=== PATIENT | male | born 1955 | race Caucasian/White ===

== ENCOUNTER 2018-04-03 09:06 | Emergency (ER) | payer OTHER ==
[2018-04-03 09:29] VITALS: BP 155/97; PULSE 78; TEMP 98.5; BMI 26.6
[2018-04-03] MEDS ORDERED: MECLIZINE HCL 25 MG TABLET (FP) PO ONE (10:42)
--- NOTE | 2018-04-03 10:48 | PDOC ---
History of Present Illness - General Chief Complaint: Lightheaded Stated Complaint: Lightheaded Time Seen by Provider: 04/03/18 09:45 History Source: Patient Exam Limitations: No Limitations - History of Present Illness Initial Comments: 04/03/18 10:53 Patient is a 62-year-old male with no past medical history who presents to the emergency department today for dizziness started this morning. Patient states he woke up and when he sat up the whole room was spinning around him. He states the sensation is worse on the left than the right. He states that this has never happened to him before. Denies lightheadedness, headache, fever, nausea, vomiting, gait changes, weakness. Past History - Travel Traveled outside of the country in the last 30 days: No Close contact w/someone who was outside of country & ill: No - Past Medical History Allergies/Adverse Reactions: Allergies Allergy/AdvReac Type Severity Reaction Status Date / Time No Known Allergies Allergy Verified 04/03/18 10:45 Home Medications: Ambulatory Orders Fluticasone Prop 0.05% Nasal [Flonase -] 1 - 2 spray NS DAILY #1 spray.pump Meclizine HCl [Antivert -] 25 mg PO TID #21 tablet 04/03/18 COPD: No HTN: Yes - Immunization History Immunization Up to Date: Yes - Suicide/Smoking/Psychosocial Hx Smoking History: Never smoked Hx Alcohol Use: No Drug/Substance Use Hx: No Substance Use Type: None Review of Systems - Review of Systems Able to Perform ROS?: Yes Comments:: 04/03/18 10:42 CONSTITUTIONAL: Absent: fever, chills, diaphoresis, generalized weakness, malaise, loss of appetite HEENT: Absent: rhinorrhea, nasal congestion, throat pain, throat swelling, difficulty swallowing, mouth swelling, ear pain, eye pain, visual Changes CARDIOVASCULAR: Absent: chest pain, loss of consciousness, palpitations, irregular heart rate, peripheral edema RESPIRATORY: Absent: cough, shortness of breath, dyspnea with exertion, orthopnea, wheezing, stridor, hemoptysis GASTROINTESTINAL: Absent: abdominal pain, abdominal distension, nausea, vomiting, diarrhea, constipation, melena, hematochezia GENITOURINARY: Absent: dysuria, frequency, urgency, hesitancy, hematuria, flank pain, genital pain MUSCULOSKELETAL: Absent: myalgia, arthralgia, joint swelling SKIN: Absent: rash, itching, pallor HEMATOLOGIC/IMMUNOLOGIC: Absent: easy bleeding, easy bruising, lymphadenopathy, frequent infections ENDOCRINE: Absent: unexplained weight gain, unexplained weight loss, heat intolerance, cold intolerance NEUROLOGIC: Present: dizziness Absent: headache, focal weakness or paresthesias, unsteady gait, seizure, mental status changes, bladder or bowel incontinence PSYCHIATRIC: Absent: anxiety, depression, suicidal or homicidal ideation, hallucinations. Is the patient limited [place]i proficient: No *Physical Exam - Vital Signs Last Vital Signs Temp Pulse Resp BP Pulse Ox 98.5 F 78 20 155/97 99 04/03/18 09:10 04/03/18 09:10 04/03/18 09:10 04/03/18 09:10 04/03/18 09:10 - Physical Exam Comments: 04/03/18 10:42 GENERAL: Well developed, well nourished. Awake and alert. No acute distress. HEENT: Normocephalic, atraumatic. PERRLA, EOMI. No conjunctival pallor. Sclera are non- icteric. Moist mucous membranes. Oropharynx is clear. NECK: Supple. Full ROM. No JVD. Carotid pulses 2+ and symmetric, without bruits. No thyromegaly. No lymphadenopathy. CARDIOVASCULAR: Regular rate and rhythm. No murmurs, rubs, or gallops. Distal pulses are 2+ and symmetric. PULMONARY: No evidence of respiratory distress. Lungs clear to auscultation bilaterally. No wheezing, rales or rhonchi. ABDOMINAL: Soft. Non-tender. Non-distended. No rebound or guarding. No organomegaly. Normoactive bowel sounds. MUSCULOSKELETAL Normal range of motion at all joints. No bony deformities or tenderness. No CVA tenderness. EXTREMITIES: No cyanosis. No clubbing. No edema. No calf tenderness. SKIN: Warm and dry. Normal capillary refill. No rashes. No jaundice. NEUROLOGICAL: Alert, awake, appropriate. Cranial nerves 2-12 intact. No deficits to light touch and temperature in face, upper extremities and lower extremities. No motor deficits in the in face, upper extremities and lower extremities. Normoreflexic in the upper and lower extremities. Normal speech. Toes are down- going bilaterally. Gait is normal without ataxia. No dysmetria, dysarthria, or dysdiadochokinesia PSYCHIATRIC: Cooperative. Good eye contact. Appropriate mood and affect. Medical Decision Making - Medical Decision Making 04/03/18 11:23 Patient is a 62-year-old male with no past medical history who presents to the emergency department for dizziness starting this morning. -Patient is neurologically intact, cerebellar testing is normal at this time. -Patient reports dizziness is worse when he turns his head to the left. He also describes the room spinning. Episodes last less than a minute. -Most likely BPPV. Patient given meclizine with relief of symptoms. -Will discharge home at this time. -Patient was given follow-up at [facility] primary care clinic. -I discussed the physical exam findings, ancillary test results and final diagnoses with the patient. I answered all of the patient's questions. The patient was satisfied with the care received and felt comfortable with the discharge plan and treatment plan. The Patient agrees to follow up with the primary care physician/specialist within 24-72 hours. Return precautions were given. *DC/Admit/Observation/Transfer Diagnosis at time of Disposition: BPPV (benign paroxysmal positional vertigo) Qualifiers: Laterality: left Qualified Code(s): H81.12 - Benign paroxysmal vertigo, left ear - Discharge Dispostion Disposition: HOME Condition at time of disposition: Stable Decision to Admit order: No - Prescriptions Prescriptions: Fluticasone Prop 0.05% Nasal [Flonase -] 1 - 2 spray NS DAILY #1 spray.pump Meclizine HCl [Antivert -] 25 mg PO TID #21 tablet - Referrals Referrals: Shruthi Coughlin MD [Staff Physician] - - Patient Instructions Printed Discharge Instructions: DI for Benign Paroxysmal Positional Vertigo Additional Instructions: Tienes vrtigo. [place] debera desaparecer por s solo en los prximos ling. Por favor, tome meclizine cada 8 horas para el mareo. Por favor use el Flonase diariamente en silvina fosas nasales. Por favor yeyo un seguimiento con el Dr. Sy el juflorianes 04/06 a las 10 AM. Direccin: [address] [place] [address]. Regrese al departamento de emergencias para cualquier sntoma nuevo o que empeore. You have vertigo. This should go away on its own in the next couple of days. Please take meclizine every 8 hours for the dizziness. Please use the Flonase daily in your nostrils. Please follow-up with Dr. Sy on 04/06 at 10 AM. Address: [address] [place] [address]. Return to the emergency department for any new or worsening symptoms. - Post Discharge Activity
[2018-04-03] MEDS ORDERED: MECLIZINE HCL 25 MG TABLET (FP) ONE (10:51)
== END 2018-04-03 10:54 | disposition home or self-care (01) ==
LOC: JERFT 09:06
DX: H81.12 Benign paroxysmal vertigo, left ear (principal); I10 Essential (primary) hypertension
CPT/HCPCS: 99281-25